=== PATIENT | female | born 2000 ===

== ENCOUNTER 2022-04-16 11:49 | Emergency (ER) | payer OTHER, SELFPAY ==
[2022-04-16 12:02] VITALS: BP 138/70; PULSE 91; O2SAT 97
== END 2022-04-16 16:44 | disposition left against medical advice (07) ==
PROVIDERS: Emergency Provider Emergency Medicine
DX: S71.151A Open bite, right thigh, initial encounter (principal); W54.0XXA Bitten by dog, initial encounter; Y93.9 Activity, unspecified; Y92.9 Unspecified place or not applicable; Y99.9 Unspecified external cause status

== ENCOUNTER → 2024-06-04 10:27 | Outpatient (BNV) | payer OTHER, SELFPAY ==
--- NOTE | 2024-06-04 10:27 | MHC.OFFVIS ---
Intake Visit Reasons: Amb Documentation Allergies No Known Allergies Allergy (Verified 06/04/24 10:45) HPI Comments Details: student seen for orientation. she has no current issues that she is concerned about but is looking for a therapist to think some life questions though [facility] (she doesn't want me to involve her on-site counselor in this) her phq 9 is 1 and she smokes cannabis freq to help sleep. PCP dr Taylor (on medical leave at moment but she is very happy w/ her) OB/gyne - tapestry - had IUD but removed as her partner whom she is very happy with is transmale and unable to get her . PMH: asthma, ezcema - both under control, had covid 2 months ago was very sick but never needed inhaler even then MEDS: proAir, and some ezcema cream MOOD: good PHQ 0-1 - wants a therapist but doesn't really want help finding one ETOH - none, Cannabis - yes smokes to sleep some times- had bad experience w/ edible Cig, no relationship feels safe and healthy- and Noel is part of her baby's life - they laugh a lot - living together under [employer] lease FMH: mom - asthma, and ?stomach clot, cigarette smoker father : unknown brotherx 2 - one had 'kidney failure as a young child - better now' sister x 2 - in good health partner - trans male - in good health she has goals - wants to finish [employer], become a PROCESS SAFETY SPECIALIST, wants to have her son grow up to be a good man. feels like she doesn't really want to interact [facility] 'fake' people - feels that people use you when you have something and they aren't there when you dont. she has one veyr good friend that she calls cousin - and she feels that Noel is a good partner - COUNT INCLUDES [facility] Medical History (Updated 06/04/24 @ 10:44 by IRENE Clayton) Chronic eczema Asthma, mild intermittent, well-controlled Family History (Updated 06/04/24 @ 10:42 by IRENE Clayton) Mother Asthma Gastrointestinal disorder Cigarette smoker Brother No problems noted. Brother History of renal failure Sister No problems noted. Sister No problems noted. Son Asthma Social History Advance Directives: No Advance Directives Information Provided: No Review of Systems Const Details: Counseling visit: All systems reviewed & are unremarkable except as noted in HPI and below Reports as per HPI Resp Reports as per HPI GI Reports as per HPI Musc Reports as per HPI Neuro Reports as per HPI Psych Reports as per HPI Physical Exam Const General: cooperative, healthy appearing and no acute distress Nutritional Appearance: well nourished Orientation/consciousness: oriented to person Limitations: no limitations HEENT Other: wnl Eyes Other: wnl Chest Other: easy breathing Resp Effort & Inspection: able to speak in complete sentences Skin Other: normal in appearance Neuro General: oriented to person Psych Other: see HPI Mental Status: mental status grossly normal Speech and movement: Clear speech present Attitude: cooperative Thought process: Normal thought process present Quality Reporting (2019) Depression/Bipolar (159/160/161/177) PHQ-9: Total score: 1 Assessment & Plan Assessment & Plan (1) control counseling: Comment: discussed but not currently needed Code(s): Z30. - Encounter for other general counseling and advice on contraception Category: Medical Plan work wtih onsite counselor for support of this young woman/family Coding Level of Care Code New Pt Level 4 (68362) Diagnoses control counseling Z30. Additional Codes CRAFFT Assessment Charge - Crafft: CRAFFT [id number] ([id number]) Time Spent (min) 50 Comment counseling and support and coord care w/ onsite counselor as permitted PHQ-9 Over the last 2 weeks, how often have you been bothered by any of the following problems? 1. Little interest or pleasure in doing things: not at all 2. Feeling down, depressed, or hopeless: not at all 3. Trouble falling or staying asleep, or sleeping too much: several days 4. Feeling tired or having little energy: not at all 5. Poor appetite or overeating: not at all 6. Feeling bad about yourself - or that you are a failure or have let yourself or your family down: not at all 7. Trouble concentrating on things, such as reading the newspaper or watching television: not at all 8. Moving or speaking so slowly that other people could have noticed. Or the opposite - being so fidgety or restless that you have been moving around a lot more than usual: not at all 9. Thoughts that you would be better off or of hurting yourself in some way: not at all Total score: 1 Depression Screening Interpretation: Negative Depression Screening Done: Yes 69649 - PHQ-9 Billing: Yes Source: Developed by Drs. Puneet Wyatt, Bernice Persaud, Sharad Negrete and colleagues, with an educational neelam from [employer]. UNIQUET Screening Tool PART A: In the PAST 12 MONTHS, did you: Drink any alcohol (more than few sips)? (Do not count sips of alcohol taken during family or protestant events.): No Smoke any marijuana or hashish?: Yes Use anything else to get high? (includes illegal drugs, over the counter/prescription drugs, or things that you sniff/deleon?): No PART B: If answered YES to ANY above: Have you ever been in a CAR driven by someone (including yourself) who was high or had been using alcohol or drugs?: No Do you ever use alcohol or drugs to RELAX, feel better about yourself, or fit in?: No Do you ever use alcohol or drugs while you are by yourself, or ALONE?: No Do you ever FORGET things while using alcohol or drugs?: No Do your FAMILY or FRIENDS ever tell you that you should cut down on your drinking or drug use?: No Have you ever gotten into TROUBLE while you were using alcohol or drugs?: No details: states mostly uses to sleep sometimes ELAN Assessment Charge Uniquet: ELAN [id number]
== END ==
PROVIDERS: Visit Provider Nurse Practitioner Family
DX: Z30.09 Encounter for other general counseling and advice on contraception (principal)
CPT/HCPCS: 96160; 99204

== ENCOUNTER → 2024-08-13 10:02 | Outpatient (BNV) | payer OTHER, SELFPAY ==
--- NOTE | 2024-08-13 10:02 | A.OFFVIS_ITS ---
Intake Visit Reasons: Amb Documentation Allergies No Known Allergies Allergy (Verified 06/04/24 10:45) HPI Comments Details: student coming asking for decongestant because she keeps coughing and feels very congested. she hasn't tested for covid. (test run in room - negative on rapid). she was veyr sick w/ asthma last week and didn't get to school - she left her pump home. she isn't breathing deeply because she doesn't want to cough . one transient wheeze heard.. nebulizer rx done. [facility] Medical History (Updated 08/13/24 @ 10:10 by IRENE Clayton) Chronic eczema Asthma, mild intermittent, well-controlled Family History Mother Asthma Gastrointestinal disorder Cigarette smoker Brother No problems noted. Brother History of renal failure Sister No problems noted. Sister No problems noted. Son Asthma Social History Advance Directives: No Advance Directives Information Provided: No Review of Systems Const Details: Counseling visit: All systems reviewed & are unremarkable except as noted in HPI and below Reports as per HPI Resp Reports as per HPI GI Reports as per HPI Musc Reports as per HPI Neuro Reports as per HPI Psych Reports as per HPI Physical Exam Const Other: she appears mildly uncomfortable - sniffling and restraining cough General: cooperative and no acute distress Nutritional Appearance: well nourished Orientation/consciousness: oriented to person Limitations: no limitations HEENT Other: nasal congestion Mouth: Normal oral and palatal mucosa present Eyes Other: wnl Chest Other: easy breathing Resp Other: restraining deep breathing secondary to cough - much clearer after treatment- feels better Effort & Inspection: normal respiratory effort and able to speak in complete sentences Auscultation: wheezes (minimal because she is not inhaling deeply.) expiratory w heezes, right upper and posterior Skin Other: normal in appearance Neuro General: oriented to person Psych Other: see HPI Appearance: grossly normal Mental Status: mental status grossly normal Speech and movement: Clear speech present Attitude: cooperative Thought process: Normal thought process present Office Procedures Nebulizer Treatment Nebulizer Treatment 79001-Cuoulmkgs/MDI RX initial, or Nebulizer Subsequent Treatment Assessment & Plan Assessment & Plan (1) Asthma with acute exacerbation: Code(s): J45.901 - Unspecified asthma with (acute) exacerbation Category: Medical Plan: order albuterol pump and nebulizer meds (she has one she can borrow) Plan coordinating care w/ onsite counselor to help her get meds etc Medications: New albuterol sulfate 90 mcg/actuation (Proair Digihaler) 1 - 2 inhalations inhalation Q4-6H PRN 1 ea 2RF shortness of breath or wheezing albuterol sulfate use as alternative to pump, not both 2.5 mg (3 mL) inhalation Q4-6H PRN 75 mL 0RF shortness of breath or wheezing Coding Level of Care Code Est Pt Level 4 (12243) Diagnoses Asthma with acute exacerbation J45.901 CPT Codes Nebulizer Treatment - Nebulizer Treatment, initial or subsequent: 86616- Nebulizer/MDI RX initial, or Nebulizer Subsequent Treatment ([id number]) Time Spent (min) 30 Comment counseling and coord care, neb treatment
== END ==
PROVIDERS: PCP Nurse Practitioner Family; Visit Provider Nurse Practitioner Family
DX: J45.901 Unspecified asthma with (acute) exacerbation (principal)
CPT/HCPCS: 94640; 99214; J7620